=== PATIENT | female | born 1990 | race Caucasian/White ===

== ENCOUNTER 2025-10-25 04:22 | Emergency (ER) | payer OTHER, SELFPAY ==
--- OUTSIDE RECORDS SUMMARY | 2025-10-25 04:31 | XMS_ITS | Clinical Summary ---
Author Organization [facility] Address [address] [place] [address] Care Team Providers Care Foot Setter Name Role Phone Naomie Sebastian NP Primary Care Provider Allergies Active Allergy Reactions Criticality Noted Date Comments Sulfa (Sulfonamide Antibiotics) Rash Low 05/28 Medications ibuprofen (MOTRIN) 200 MG tablet Take 200 mg by mouth every 6 (six) hours as needed for Pain Active hydrOXYzine (VISTARIL) 25 MG capsuleIndicati ons:Anxiety and depression Take 1 capsule (25 mg total) by mouth 3 (three) times daily as needed for Anxiety 30 capsule 07/11/2020 Active sertraline (ZOLOFT) 50 MG tabletIndicatio ns:Anxiety and depression Take 1.5 tablets (75 mg total) by mouth daily 21 tablet 06/10/2022 Active Active Problems Problem Noted Date Diagnosed Date Anxiety Immunizations Immunization Administration Dates Next Due Moderna SARS-CoV-2 Vaccination 11/02/2021,2020,02/08/2021 Family History Medical History Relation Comments Diabetes Father Hypertension (High blood pressure) Father Asthma Sister Relation Status Comments Father Sister Social History Tobacco Use Types Packs/Day Years Used Date Smoking Tobacco: Never Smokeless Tobacco: Never Tobacco Cessation:Counseling Given: No Alcohol Use Standard Drinks/Week Comments Not Currently 0 (1 standard drink = 0.6 oz pur e alcohol) Depression Answer Date Recorded Last PHQ Score 23 02/25/2021 Comments No Sex and Gender Information Value Date Recorded Sex Assigned at Not on file Legal Sex Female 10:16 PM PDT Gender Identity Not on file Sexual Orientation Not on file Last Filed Vital Signs Vital Sign Reading Time Taken Comments Blood Pressure 116/70 07/11/2020 3:59 PM PDT Pulse 103 07/11/2020 3:59 PM PDT Temperature 37.3 C (99.2 F) 07/11/2020 3:59 PM PDT Respiratory Rate 15 06/15/2020 10:39 PM PDT Oxygen Saturation 98% 07/11/2020 3:59 PM PDT Inhaled Oxygen Concentration - - Weight 59.4 kg (131 lb) 07/11/2020 3:59 PM PDT Height 159.5 cm (5' 2.8) 07/11/2020 3:59 PM PDT Body Mass Index 23.35 07/11/2020 3:59 PM PDT Plan of Treatment Health Maintenance Due Date Last Done Comments Disability Screening 1990 Hepatitis C Screening 1990 Varicella Vaccine (1 of 2 - 13+ 2-dose series) 2003 HIV Screening 2005 Pap Smear 2011 HPV Vaccine (1 - 3-dose SCDM series) 2017 Cervical Cancer Screening 01/31/2020 HPV/COTEST 01/31/2020 Drug, Alcohol, and Depressio n Screening 10/27/2024 SOGIE 10/27/2024 Covid-19 Vaccine (4 - 2024-2 6 season) 2025 11/02/2021, 03/08/2021, 02/08/2021 Influenza Vaccine (#1) 2025 DTaP/Tdap/Td Vaccine (2 - Td or Tdap) 05/26/2028 05/26/2018 Zoster (1 of 2) 01/31/2040 RSV Vaccines (1 - 1-dose 75+ series) 2065 Pneumococcal Ages 0-5 Years and At Risk Patients Ages 6-49 Years Aged Out No longer eligible b ased on patient's age to complete this topic Care Teams Foot Setter Relationship Specialty Start Date End Date Naomie Sebastian NP PCP - General Nurse Practitioner 03/23/24
--- NOTE | 2025-10-25 04:40 | ED_ITS ---
HPI - General Adult General Chief complaint: Dental/Oral Stated complaint: Dental Pain Time Seen by Provider: 10/25/25 04:35 History of Present Illness HPI narrative: 35-year-old female with history of remote dental trauma to the right upper mid/medial incisor, has veneer crown, recent pain last couple of days, no sensation of swelling to lip or face. Due to see dental provider later this morning at 10:00 a.m., not currently on any antibiotics. Denies problem moving her neck. No facial swelling. No trouble swallowing. Related Data Previous Rx's ?Medication ?Instructions ?Recorded clindamycin HCl 300 mg capsule 300 mg PO Q6H Dental in fection 7 10/25/25 days #28 caps Allergies Allergy/AdvReac Type Severity Reaction Status Date / Time Sulfa (Sulfonamide Allergy Unknown Verified 10/25/25 04:50 Antibiotics) Exam Narrative Exam Narrative: GENERAL: Well-developed patient, in mild distress. HEAD: Atraumatic. Normocephalic. EYES: Pupils equal round and reactive. Extraocular motions intact. No scleral icterus. No injection or drainage. ENT: Some tenderness on direct palpation to the right upper middle incisor, not obviously loose, the near like appearance, no associated gingival swelling, no lip swelling or palatal edema. NECK: Trachea midline. Non tender CARDIOVASCULAR: Regular rate and rhythm without murmurs, gallops, or rubs. RESPIRATORY: Clear to auscultation. Breath sounds equal bilaterally. No wheezes, rales, or rhonchi. GASTROINTESTINAL: Abdomen soft, non-tender, nondistended. EXTREMITIES: No edema or joint tenderness. BACK: Nontender without deformity or crepitance. No flank tenderness. NEURO: AOx3. Motor functions grossly nonfocal. SKIN: No rash or erythema of visible areas Initial Vital Signs Initial Vital Signs: Vital Signs Oxygen Delivery Method Room Air 10/25/25 04:46 Course Orders Ordered: Discontinued Medications Hydrocodone Bitart/Acetaminophen (Hydrocodone/Acet 5/325 Prepack) 1 bottle MISC DIRECTED ONE Stop: 10/25/25 05:04 Last Admin: 10/25/25 05:16 Dose: 1 bottle Documented By: XIN Clindamycin HCl (Clindamycin 150 Mg Capsule) 300 mg PO NOW ONE Stop: 10/25/25 05:04 Last Admin: 10/25/25 05:16 Dose: 300 mg Documented By: XIN Ketorolac Tromethamine (Ketorolac 30 Mg/Ml Vial) 30 mg IM NOW ONE Stop: 10/25/25 04:49 Last Admin: 10/25/25 04:57 Dose: 30 mg Documented By: XIN Vital Signs Vital signs: Vital Signs - 8 hr 10/25/25 04:46 10/25/25 05:30 Temperature 97.9 F Pulse Rate 75 Respiratory Rate 16 Blood Pressure 139/84 Pulse Oximetry 97 Oxygen Delivery Method Room Air Room Air Discharge Plan Departure Patient Disposition: Home Clinical Impression: Pain, dental Instructions: DI for Dental Pain Activity Restrictions/Additional Instructions: History of remote dental childhood injury with crown right upper medial incisor tooth, that has symptomatic pain over the last couple of days, no new trauma, no current antibiotics, afebrile, no significant swelling to the adjacent gingiva/gums, nor to the area face or lips at this time. However, symptoms suspicious for presumed apical dental abscess, we will start antibiotics, we discussed choices of antibiotics that might include amoxicillin or Augmentin nor clindamycin. Clindamycin seemed to be preferred. Oral dose of clindamycin given, prescription for further clindamycin antibiotics sent to your pharmacy. Consider discussing which antibiotic to continue with your regular dentist, if they would prefer to have a different class of oral antibiotic treatment at this time. Follow up with your dentist later this morning as planned. Prescriptions: New clindamycin HCl 300 mg capsule 300 mg PO Q6H 7 Days Qty: 28 0RF Stand Alone Forms: Patient Portal/API
[2025-10-25] MEDS: KETOROLAC 30 MG/ML VIAL IM (04:57)
[2025-10-25] MEDS: CLINDAMYCIN 150 MG CAPSULE 300 MG PO (05:16)
[2025-10-25 05:30] VITALS: BP 139/84; PULSE 75; RESP 16; TEMP 36.6; O2SAT 97
== END 2025-10-25 05:32 | disposition home or self-care (01) ==
PROVIDERS: Emergency Provider Emergency Medicine
DX: K08.89 Other specified disorders of teeth and supporting structures (principal)
CPT/HCPCS: J1885

== ENCOUNTER 2025-10-25 22:19 | Emergency (ER) | payer OTHER, SELFPAY ==
--- NOTE | 2025-10-25 22:26 | ED.DENTAL ---
HPI - Dental/Oral General Chief complaint: Dental/Oral Stated complaint: Dental Pain, sent by Dentist Time Seen by Provider: 10/25/25 22:25 History of Present Illness HPI Narrative: 35-year-old female seen last evening for dental infection prescribed clindamycin seen dentist today ordered x-rays and confirmed that she has not infection switched her to amoxicillin and referred her to day habilitation supervisor. She started to develop more swelling and having chest tightness after starting to take amoxicillin. Patient got concerned and came over to be evaluated again. Other than what is stated 14 point review of system is negative. Location: Tooth # (6) Related Data Previous Rx's ?Medication ?Instructions ?Recorded clindamycin HCl 150 mg capsule 450 mg (3 x 150 mg) PO Q8H 7 days 10/25/25 #63 caps clindamycin HCl 300 mg capsule 300 mg PO Q6H Dental infection 7 10/25/25 days #28 caps hydrocodone 5 mg-acetaminophen 325 1 tab PO Q4-6H PRN pain #20 tabs 10/25/25 mg tablet Allergies Allergy/AdvReac Type Severity Reaction Status Date / Time Sulfa (Sulfonamide Allergy Unknown Verified 10/25/25 22:29 Antibiotics) Review of Systems Review of Systems ROS Unobtainable: All systems reviewed & are unremarkable except as noted in HPI and below Patient History Social History Smoking Status: Never smoker Exam Narrative Exam Narrative: GENERAL: [35] year old patient appears stated age. Well-developed patient, in mild distress. HEAD: Atraumatic. Normocephalic. EYES: Pupils equal round and reactive. Extraocular motions intact. No scleral icterus. No injection or drainage. ENT: Nose without bleeding, purulent drainage. Throat without erythema, tonsillar hypertrophy or exudate. Airway patent. Right upper middle incisor tooth #6 no associated gingival swelling, no lip swelling or palatal edema. NECK: Trachea midline. Non tender EXTREMITIES: No edema or joint tenderness. BACK: Nontender without deformity or crepitance. No flank tenderness. NEURO: AOx3. SKIN: No rash or erythema of visible areas Initial Vital Signs Initial Vital Signs: Vital Signs Temperature 99.0 F 10/25/25 22:29 Pulse Rate 88 10/25/25 22:29 Respiratory Rate 16 10/25/25 22:29 Blood Pressure 132/93 H 10/25/25 22:29 Pulse Oximetry 97 10/25/25 22:29 Oxygen Delivery Method Room Air 10/25/25 22:29 Course Orders Ordered: Discontinued Medications Hydrocodone Bitart/Acetaminophen (Hydrocodone/Acet 5/325 Tablet) 1 tab PO NOW ONE Stop: 10/25/25 22:36 Last Admin: 10/25/25 22:54 Dose: 1 tab Documented By: Hydrocodone Bitart/Acetaminophen (Hydrocodone/Acet 5/325 Prepack) 1 bottle MISC DIRECTED ONE Stop: 10/25/25 22:57 Last Admin: 10/25/25 23:00 Dose: 1 bottle Documented By: Ceftriaxone Sodium (Ceftriaxone 2,000 Mg Vial) 1,000 mg IM NOW ONE Stop: 10/25/25 22:36 Last Admin: 10/25/25 23:01 Dose: 1,000 mg Documented By: Ketorolac Tromethamine (Ketorolac 30 Mg/Ml Vial) 30 mg IM NOW ONE Stop: 10/25/25 22:57 Last Admin: 10/25/25 23:00 Dose: 30 mg Documented By: MDM - Dental/Oral MDM Narrative Medical decision making narrative: All labwork, vital signs, electromechanical technician note, med list, previous ER visit and all imaging studies reviewed. Pt given rocephin 1g IM, toradol IM, and norco, continue on clindamycin and norco rx. and f/u with day habilitation supervisor. Differential dx dental abscess, cavities, gingivitis, anug Discharge Plan Departure Patient Disposition: Home Clinical Impression: Pain, dental Activity Restrictions/Additional Instructions: Return with new or worsening symptoms. Stop amoxicillin restart clindamycin. Follow up with day habilitation supervisor referral by your dentist. Alternate ibuprofen and [place] for pain control. Prescriptions: New hydrocodone-acetaminophen 5-325 mg tablet 1 tab PO Q4-6H PRN (Reason: pain) Qty: 20 0RF clindamycin HCl 150 mg capsule 450 mg PO Q8H 7 Days Qty: 63 0RF No Action clindamycin HCl 300 mg capsule 300 mg PO Q6H 7 Days Qty: 28 0RF Stand Alone Forms: Patient Portal/API
[2025-10-25 22:29] VITALS: BP 132/93; PULSE 88; RESP 16; TEMP 37.2; O2SAT 97; BMI 33.6
[2025-10-25] MEDS: KETOROLAC 30 MG/ML VIAL IM (23:00)
== END 2025-10-25 23:10 | disposition home or self-care (01) ==
PROVIDERS: Emergency Provider Family Medicine
DX: K08.89 Other specified disorders of teeth and supporting structures (principal)
CPT/HCPCS: 96374; 96375; 99283; J0696; J1885